=== PATIENT | male | born 1965 | race Caucasian/White ===

== ENCOUNTER 2020-05-25 10:09 | Outpatient (CLI) | payer MEDICARE, SELFPAY ==
--- NOTE | 2020-05-25 10:26 | XR_ITS ---
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 FINDINGS: Moderate degenerative arthritis AC joint. Subacromial space is preserved. Normal glenohumeral joint. No acute fractures. Visualized right ribs are normal in appearance. No acute fractures. XR/XR shoulder RT min 2V* [id number] IMPRESSION: 1. Moderate arthritis AC joint with preservation of the subacromial space. 2. Normal glenohumeral joint. 3. No acute fractures.
== END 2020-05-25 10:10 | disposition home or self-care (01) ==
PROVIDERS: PCP Registered Nurse; Visit Provider Registered Nurse
DX: M77.8 Other enthesopathies, not elsewhere classified (principal); M13.811 Other specified arthritis, right shoulder
CPT/HCPCS: 73030

== ENCOUNTER → 2020-10-02 17:01 | Outpatient (BNVA) | payer MEDICARE, SELFPAY | PROVIDERS: PCP Registered Nurse; Visit Provider Nurse Practitioner Family | DX: R39.9 Unspecified symptoms and signs involving the genitourinary system (principal); R31.9 Hematuria, unspecified | CPT/HCPCS: 81000; 87086 ==

== ENCOUNTER → 2022-10-02 14:43 | Outpatient (BNVA) | payer MEDICARE, SELFPAY | PROVIDERS: PCP Family Medicine; Visit Provider Family Medicine | DX: I10 Essential (primary) hypertension (principal); E66.01 Morbid (severe) obesity due to excess calories; Z68.42 Body mass index [BMI] 45.0-49.9, adult; E03.9 Hypothyroidism, unspecified | CPT/HCPCS: 80053; 84443; 85025 ==

== ENCOUNTER → 2022-10-03 16:54 | Outpatient (BNVA) | payer MEDICARE, SELFPAY | PROVIDERS: PCP Family Medicine; Visit Provider Family Medicine | DX: R73.9 Hyperglycemia, unspecified (principal) | CPT/HCPCS: 83036 ==

== ENCOUNTER → 2023-11-05 09:47 | Outpatient (BNVA) | payer MEDICARE, SELFPAY | PROVIDERS: PCP Family Medicine; Visit Provider Registered Nurse | DX: E11.9 Type 2 diabetes mellitus without complications (principal); I10 Essential (primary) hypertension | CPT/HCPCS: 80053; 80061; 83036; 85025 ==

== ENCOUNTER 2023-12-22 06:00 | Outpatient (CLI) | payer MEDICARE, SELFPAY | END 2023-12-22 06:01 | disposition home or self-care (01) | LOC: RAD 12-26 09:37 | PROVIDERS: PCP Family Medicine; Visit Provider Otolaryngology | DX: M19.071 Primary osteoarthritis, right ankle and foot (principal); R93.7 Abnormal findings on diagnostic imaging of other parts of musculoskeletal system | CPT/HCPCS: 73610 ==

== ENCOUNTER 2024-01-05 09:33 | Outpatient (CLI) | payer MEDICARE, SELFPAY ==
--- NOTE | 2024-01-05 09:39 | CT_ITS ---
WS: [id number] CT PARANASAL SINUSES HISTORY: CHRONIC SINUSITIS, UNSPECIFIED TECHNIQUE: Contiguous 2.5 mm axial images obtained through the sinuses. Images are reconstructed in s agittal and coronal planes. All CT scans at [facility] use at least one of these dose optimiz ation techniques: automated exposure control; mA and/or kV adjustment per patient size (includes targ eted exams where dose is matched to clinical indication); or iterative reconstruction. DLP: 371.98 mGy.cm COMPARISON: None available. Frontal sinuses: Minimal mucoperiosteal thickening RIGHT frontal sinus extending through the frontal ethmoid recess. Sphenoid sinus: Small mucous retention cyst in the anterior sphenoid sinus. Ethmoid sinuses: Very mild bilateral ethmoid air cell disease. Soft tissue extends into the frontal e thmoid recess on the RIGHT. Maxillary sinus: Very mild mucoperiosteal thickening. There are small incomplete septations to each m axillary sinus. Small air-fluid level in the LEFT maxillary sinus. Ostiomeatal unit: Increased mucoperiosteal thickening across the ostiomeatal units with minimal obstr uction. Mild deviation of the nasal septum with bony spurring. Small bony spur high along the nasal septum me asures about 3 mm and abuts the middle turbinate. Orbits and globes are negative. CT/CT sinus wo con* [id number] IMPRESSION: 1. Small air-fluid level LEFT maxillary sinus. 2. Very minimal mucoperiosteal thickening obstructing the ostiomeatal units. 3. Minimal mucoperiosteal thickening in the RIGHT frontal sinus extending into the frontal ethmoid recess.
== END 2024-01-05 09:34 | disposition home or self-care (01) ==
LOC: RAD 09:34
PROVIDERS: PCP Family Medicine; Visit Provider Otolaryngology
DX: J31.0 Chronic rhinitis (principal); J32.9 Chronic sinusitis, unspecified
CPT/HCPCS: 70486

== ENCOUNTER → 2024-09-16 10:52 | Outpatient (BNVA) | payer MEDICARE, SELFPAY | PROVIDERS: PCP Registered Nurse; Visit Provider Registered Nurse | DX: I10 Essential (primary) hypertension (principal); E11.9 Type 2 diabetes mellitus without complications; M10.9 Gout, unspecified | CPT/HCPCS: 80053; 80061; 83036; 84550; 85025 ==